=== PATIENT | male | born 1990 | race Caucasian/White ===

== ENCOUNTER 2020-12-17 09:09 | Emergency (ER) | payer OTHER ==
[2020-12-17 09:18] VITALS: BP 138/89; PULSE 111; RESP 16; TEMP 97.9
--- NOTE | 2020-12-17 09:44 | ED ---
Back Pain HPI - General Chief Complaint: Back Pain/Injury Stated Complaint: Back injury Time Seen by Provider: 12/17/20 09:20 Source: patient Limitations: no limitations - History of Present Illness Initial Comments: Patient is a 30-year-old male presenting to the emergency Department with complaints of left mid back pain that's been ongoing for about 2 weeks. Patient denies any falls or trauma to his back. He states he does have a history of intermittent back pain throughout the past few years. No prior surgeries. No fever or chills. No numbness and tingling into his extremities. Patient also states that he has a "pimple" on his left groin area that he is concerned could be turning into an infection. He does have history of MRSA and does not want this to get worse. He states it did open and drain yesterday. He has no other complaints at this time. Upon arrival to the ER his vitals are stable. - Related Data Previous Rx's Medication Instructions Recorded Sulfamethox-Tmp 800-160Mg [Bactrim 1 each PO Q12HR 5 Days #10 tab 12/17/20 Ds] methocarbamoL [Robaxin] 500 mg PO TID PRN #10 tab 12/17/20 Allergies Allergy/AdvReac Type Severity Reaction Status Date / Time No Known Allergies Allergy Verified 12/17/20 09:18 Review of Systems ROS Statement: Those systems with pertinent positive or pertinent negative responses have been documented in the HPI. ROS Other: All systems not noted in ROS Statement are negative. Past Medical History Additional Past Medical History / Comment(s): chronic back pain, hepatitis C History of Any Multi-Drug Resistant Organisms: MRSA Date of last positivie culture/infection: 2020 MDRO Source:: skin Past Surgical History: No Surgical Hx Reported Past Psychological History: ADD/ADHD, Anxiety, Depression, PTSD Smoking Status: Current every day smoker Past Alcohol Use History: None Reported Past Drug Use History: None Reported General Exam - General Exam Comments Initial Comments: GENERAL: Patient is well-developed and well-nourished. Patient is nontoxic and in no acute distress. HEAD: Atraumatic, normocephalic. EYES: Pupils equal round and reactive to light, extraocular movements intact, sclera anicteric, conjunctiva are normal. Eyelids were unremarkable. ENT: TMs normal, nares patent, oropharynx clear without exudates. Moist mucous membranes. NECK: Normal range of motion, supple without lymphadenopathy or JVD. LUNGS: Unlabored respirations. Breath sounds clear to auscultation bilaterally and equal. No wheezes rales or rhonchi. HEART: Regular rate and rhythm without murmurs, rubs or gallops. ABDOMEN: Soft, nontender, normoactive bowel sounds. No guarding, no rebound. No masses appreciated. : Deferred MUSCULOSKELETAL: Normal extremities with adequate strength and normal range of motion, no pitting or edema. No clubbing or cyanosis. Patient has no midline tenderness, he does have a muscle spasm of the left thoracic area. Full trunk range of motion. NEUROLOGICAL: Patient is alert and oriented x 3. Motor and sensory are also intact. Cranial nerves II through XII grossly intact. Symmetrical smile. Normal speech, normal gait. PSYCH: Normal mood, normal affect. SKIN: Warm, Dry, normal turgor,. Patient has what appears to be an ingrown hair in the left groin area, no abscess, no surrounding inflammatory changes. Limitations: no limitations Course Vital Signs 12/17/20 09:14 Temperature 97.9 F Pulse Rate 111 H Respiratory 16 Rate Blood Pressure 138/89 O2 Sat by Pulse 97 Oximetry Medical Decision Making - Medical Decision Making Patient is a 30-year-old male here for left sided mid back pain 2 weeks as well as concern for a possible infection on his left groin. Patient's back pain exam is consistent with a muscle spasm, no other acute findings. Patient does have a small pimple in the left groin, he is very concerned that this is going to turn into infection as he's had this before. Patient will be given a prescription for muscle relaxer, recommend ibuprofen for the discomfort in his back. I will give patient prescription for Bactrim, recommended waiting to see if this improves on its own since just opened up yesterday. Patient is in agreement with this plan of care. He is stable for discharge. Return benny eters were discussed with the patient he verbalizes understanding. He can follow-up with his regular doctor. Case discussed with Dr. Allen. Disposition Clinical Impression: Spasm of thoracic back muscle, Skin pimple Disposition: HOME SELF-CARE Condition: Stable Instructions (If sedation given, give patient instructions): Muscle Spasm (ED) Additional Instructions: Please return to the Emergency Department if symptoms worsen or any other concer ns. Recommend ibuprofen for back pain discomfort. He may also try muscle relaxer at nighttime. Recommend taking an antibiotic for possible skin infection if symptoms increase. Please follow-up with your regular doctor. Prescriptions: Sulfamethox-Tmp 800-160Mg [Bactrim Ds] 1 each PO Q12HR 5 Days #10 tab methocarbamoL [Robaxin] 500 mg PO TID PRN #10 tab PRN Reason: muscle spasms Is patient prescribed a controlled substance at d/c from ED?: No Referrals: None,Stated [Primary Care Provider] - 1-2 days
== END 2020-12-17 10:02 | disposition home or self-care (01) ==
LOC: EC 09:09
DX: M62.830 Muscle spasm of back (principal); R23.8 Other skin changes; F17.200 Nicotine dependence, unspecified, uncomplicated; Z86.14 Personal history of Methicillin resistant Staphylococcus aureus infection
CPT/HCPCS: 99283

== ENCOUNTER 2020-12-25 19:53 | Emergency (ER) | payer OTHER ==
[2020-12-25 20:09] VITALS: BP 132/71; PULSE 97; RESP 18; TEMP 97.9
[2020-12-25] MEDS ORDERED: KETOROLAC 15 MG/ML 1 ML VIAL IM STA (20:21)
--- NOTE | 2020-12-25 20:22 | ED ---
Upper Extremity HPI - General Chief Complaint: Extremity Injury, Upper Stated Complaint: 15 Ft fall Time Seen by Provider: 12/25/20 20:12 Source: patient, RN notes reviewed Mode of arrival: ambulatory Limitations: no limitations - History of Present Illness Initial Comments: Patient is a 30-year-old male that presents to emergency complaining of right u pper extremity, right collarbone, right shoulder blade pain. He noted he was standing on a take/scaffold at work because about 12 feet high when he fell off landing on his right side. He denied hitting his head or losing consciousness. He said the pain is about a 8 out of 10 currently this is unrelieved. He denied wanting any narcotics. He was in no apparent distress or discomfort while sitti ng in the room during exam and interview. He denied any alcohol consumption, chest pain, shortness of breath, headache nausea vomiting diarrhea constipation fever fatigue chills weakness numbness tingling loss of sensation. - Related Data Previous Rx's Medication Instructions Recorded Sulfamethox-Tmp 800-160Mg [Bactrim 1 each PO Q12HR 5 Days #10 tab 12/17/20 Ds] methocarbamoL [Robaxin] 500 mg PO TID PRN #10 tab 12/17/20 Allergies Allergy/AdvReac Type Severity Reaction Status Date / Time No Known Allergies Allergy Verified 12/17/20 09:18 Review of Systems ROS Statement: Those systems with pertinent positive or pertinent negative responses have been documented in the HPI. ROS Other: All systems not noted in ROS Statement are negative. Past Medical History Additional Past Medical History / Comment(s): chronic back pain, hepatitis C History of Any Multi-Drug Resistant Organisms: MRSA Date of last positivie culture/infection: 2020 MDRO Source:: skin Past Surgical History: No Surgical Hx Reported Past Psychological History: ADD/ADHD, Anxiety, Depression, PTSD Smoking Status: Current every day smoker Past Alcohol Use History: None Reported Past Drug Use History: None Reported General Exam Limitations: no limitations General appearance: alert, in no apparent distress Head exam: Present: atraumatic, normocephalic, normal inspection Eye exam: Present: normal appearance, PERRL, EOMI. Absent: scleral icterus, conjunctival injection, periorbital swelling Neck exam: Present: normal inspection. Absent: tenderness, meningismus, lymphadenopathy Respiratory exam: Present: normal lung sounds bilaterally. Absent: respiratory distress, wheezes, rales, rhonchi, stridor Cardiovascular Exam: Present: regular rate, normal rhythm, normal heart sounds. Absent: systolic murmur, diastolic murmur, rubs, gallop, clicks GI/Abdominal exam: Present: soft, normal bowel sounds. Absent: distended, tenderness, guarding, rebound, rigid Extremities exam: Present: normal inspection, normal capillary refill. Absent: full ROM (Decreased range of motion of right arm due to pain.), tenderness, pedal edema, joint swelling, calf tenderness Neurological exam: Present: alert, oriented X3, CN II-XII intact Psychiatric exam: Present: normal affect, normal mood Skin exam: Present: warm, dry, intact, normal color. Absent: rash Course Vital Signs 12/25/20 20:04 Temperature 97.9 F Pulse Rate 97 Respiratory 18 Rate Blood Pressure 132/71 O2 Sat by Pulse 95 Oximetry Medical Decision Making - Medical Decision Making 1-year-old male status post fall from 12 feet and landing on his right side. Complete shoulder x-ray and complete clavicle x-ray ordered. 15 mg of Toradol ordered, patient did not want narcotics. Case discussed with Dr. De Dios, was decided the patient could discharge home with follow up primary care. - Radiology Data Radiology results: report reviewed, image reviewed Clavicle: There is no acute fracture or dislocation the visualized joint spaces are preserved. Shoulder: There is no acute fracture dislocation of visualized joint spaces are preserved. Disposition Clinical Impression: Fall, Shoulder pain, right, Clavicle pain Disposition: HOME SELF-CARE Condition: Stable Instructions (If sedation given, give patient instructions): Fall Prevention (ED), Shoulder Pain (ED) Additional Instructions: Please return to the Emergency Department if symptoms worsen or any other concerns. Follow-up with primary care 1-2 days. Take [id number] pain medication as needed for management. Is patient prescribed a controlled substance at d/c from ED?: No Referrals: None,Stated [Primary Care Provider] - 1-2 days Time of Disposition: 21:13
[2020-12-25] MEDS: KETOROLAC 15 MG/ML 1 ML VIAL IVP STA ×2 (20:23→20:42)
--- NOTE | 2020-12-25 20:54 | XR ---
RESULT: HISTORY: Fall from height TECHNIQUE: 3 views of the right shoulder. 2 views of the right clavicle. COMPARISON: None. FINDINGS: There is no acute fracture or dislocation. The visualized joint spaces are preserved. IMPRESSION: No acute osseous abnormality of the right shoulder or clavicle.
== END 2020-12-25 21:34 | disposition home or self-care (01) ==
LOC: EC 19:53
DX: M25.511 Pain in right shoulder (principal); F17.200 Nicotine dependence, unspecified, uncomplicated; W17.89XA Other fall from one level to another, initial encounter; Y92.69 Other specified industrial and construction area as the place of occurrence of the external cause
CPT/HCPCS: 73000; 73030; 96374; 96372; 99283; J1885

== ENCOUNTER 2020-12-29 15:57 | Emergency (ER) | payer OTHER ==
[2020-12-29 16:17] VITALS: RESP 18; TEMP 97.9
--- NOTE | 2020-12-29 17:03 | ED ---
General Adult HPI - General Chief complaint: Extremity Injury, Upper Stated complaint: Fall, arm pain Time Seen by Provider: 12/29/20 16:00 Source: patient, RN notes reviewed, old records reviewed Mode of arrival: ambulatory Limitations: no limitations - History of Present Illness Initial comments: This is a 30-year-old male presents emergency Department complaining of having fallen 15 feet and injuring his right clavicle and shoulder area. Patient came to the emergency room at that time and had x-rays done but since going home he states the clavicular sternal joint area is still extremely tender and it limits him from lifting anything heavy and makes it impossible for him to complete his job. Patient denies any actual shoulder pain. Patient denies any chest pain patient with any difficulty breathing. Patient denies any head or neck injury. - Related Data Previous Rx's Medication Instructions Recorded Sulfamethox-Tmp 800-160Mg [Bactrim 1 each PO Q12HR 5 Days #10 tab 12/17/20 Ds] methocarbamoL [Robaxin] 500 mg PO TID PRN #10 tab 12/17/20 Allergies Allergy/AdvReac Type Severity Reaction Status Date / Time No Known Allergies Allergy Verified 12/29/20 16:18 Review of Systems ROS Statement: Those systems with pertinent positive or pertinent negative responses have been documented in the HPI. ROS Other: All systems not noted in ROS Statement are negative. Past Medical History Additional Past Medical History / Comment(s): chronic back pain, hepatitis C History of Any Multi-Drug Resistant Organisms: MRSA Date of last positivie culture/infection: 2020 MDRO Source:: skin Past Surgical History: No Surgical Hx Reported Past Psychological History: ADD/ADHD, Anxiety, Depression, PTSD Smoking Status: Current every day smoker Past Alcohol Use History: None Reported Past Drug Use History: None Reported General Exam - General Exam Comments Initial Comments: GENERAL Patient is well-developed and well-nourished. Patient is in mild distress. EYES Patient's pupils are equal and round. Extraocular motion is intact SKIN Unremarkable NEURO The patient is alert and oriented 3 PYSCH Patient has normal interpersonal interactions. MUSCULOSKELETAL Patient has no shoulder tenderness no skin tenderness no chest tenderness. Patient's tenderness is at the right sternoclavicular joint area is slightly protruding when compared to the left patient has pain when abducting the arm forward Limitations: no limitations Course Vital Signs 12/29/20 12/29/20 16:15 17:45 Temperature 97.9 F Pulse Rate 78 75 Respiratory 18 18 Rate Blood Pressure 172/105 146/95 O2 Sat by Pulse 98 98 Oximetry Medical Decision Making - Medical Decision Making X-ray of the clavicle and sternal joint showed a nondisplaced fracture of the proximal clavicle on the right. Disposition Clinical Impression: Clavicle fracture Disposition: HOME SELF-CARE Instructions (If sedation given, give patient instructions): Clavicle Fracture (ED) Is patient prescribed a controlled substance at d/c from ED?: No Referrals: Won Danielson MD [STAFF PHYSICIAN] - 1-2 days Time of Disposition: 18:24
[2020-12-29 17:46] VITALS: BP 146/95; PULSE 75
[2020-12-29] MEDS ORDERED: KETOROLAC 15 MG/ML 1 ML VIAL IM STA (17:53)
--- NOTE | 2020-12-29 18:17 | XR ---
RESULT: HISTORY: Trauma with pain. TECHNIQUE: 3 views of the sternoclavicular junction were obtained. COMPARISON: None. FINDINGS: There is nondisplaced right proximal clavicle fracture near the sternum. No evidence of dislocation. IMPRESSION: Nondisplaced right proximal clavicle fracture.
== END 2020-12-29 18:39 | disposition home or self-care (01) ==
LOC: EC 15:57
DX: S42.001A Fracture of unspecified part of right clavicle, initial encounter for closed fracture (principal); F17.200 Nicotine dependence, unspecified, uncomplicated; Z86.14 Personal history of Methicillin resistant Staphylococcus aureus infection; W17.89XA Other fall from one level to another, initial encounter
CPT/HCPCS: 71130; 99284; 96372; L3670; J1885

== ENCOUNTER 2021-02-22 16:55 | Inpatient (IN) | payer OTHER ==
[2021-02-22] MEDS ORDERED: SODIUM CHLORIDE 0.9% 1,000 ML IV ONE (17:05)
[2021-02-22 17:32] LABS: Basophils % (A) 1 %; Eosinophils # (A) 0.2 k/uL (0-0.7); Eosinophils % (A) 2 %; HCT 43.3 % (39.0-53.0); HGB 15.1 gm/dL (13.0-17.5); Lymphocytes # (A) 0.7 k/uL (1.0-4.8); Lymphocytes % (A) 8 %; MCH 32.5 pg (25.0-35.0); MCHC 34.9 g/dL (31.0-37.0); MCV 93.2 fL (80.0-100.0); Mean Platelet Volume 6.9; Monocytes # (A) 0.4 k/uL (0-1.0); Monocytes % (A) 4 %; Neutrophils # (A) 7.2 k/uL (1.3-7.7); Neutrophils % (A) 85 %; Platelet Count 175 k/uL (150-450); RBC 4.65 m/uL (4.30-5.90); WBC 8.6 k/uL (3.8-10.6)
[2021-02-22 17:40] LABS: ABG Base Excess 2.8 mmol/L; ABG HCO3 29 mmol/L (21-25); ABG Oxygen Saturation 88.4 % (94-97); ABG PCO2 59 mmHg (35-45); ABG TCO2 31 mmol/L (19-24); Allen Test Performed? Yes
[2021-02-22 17:43] LABS: ABG PO2 54 mmHg (83-108)
[2021-02-22] MEDS ORDERED: NALOXONE 0.4 MG/ML 1 ML VIAL IVP STA (17:43)
[2021-02-22 17:50] LABS: ALT 27 U/L (4-49); AST 37 U/L (17-59); African American GFR (CKD) >90 (>60 ml/min/1.73 sqM); Albumin 4.5 g/dL (3.5-5.0); Alkaline Phosphatase 63 U/L (38-126); Anion Gap 6 mmol/L; Blood Urea Nitrogen 16 mg/dL (9-20); Calcium 8.9 mg/dL (8.4-10.2); Carbon Dioxide 29 mmol/L (22-30); Chloride 102 mmol/L (98-107); Glucose 111 mg/dL (74-99); Non-African American GFR(CKD) >90 (>60 ml/min/1.73 sqM); Potassium 4.5 mmol/L (3.5-5.1); Sodium 137 mmol/L (137-145); Total Bilirubin 0.6 mg/dL (0.2-1.3); Total Protein 7.6 g/dL (6.3-8.2)
--- NOTE | 2021-02-22 18:13 | ED ---
General Adult HPI - General Chief complaint: Overdose Stated complaint: Overdose Time Seen by Provider: 02/22/21 17:10 Source: patient, RN notes reviewed, old records reviewed Mode of arrival: EMS Limitations: no limitations - History of Present Illness Initial comments: This is a 31-year-old male who presents emergency Department after he had an unresponsive episode. Patient was going to [place] for heroin rehabilitation and he states he shot up just before he wanted when he got there he went unresponsive. He was given Narcan nasally there and then 2 of IM Narcan on the way to the hospital he is arousable but still extremely drowsy and he is oxygenating in the high 70s or the low 80s. Patient denies any other drug use at this time patient denies no cough per patient denies any symptoms aside from feeling tired - Related Data Home Medications Medication Instructions Recorded Confirmed No Known Home Medications 02/22/21 02/22/21 Allergies Allergy/AdvReac Type Severity Reaction Status Date / Time No Known Allergies Allergy Verified 02/22/21 19:29 Review of Systems ROS Statement: Those systems with pertinent positive or pertinent negative responses have been documented in the HPI. ROS Other: All systems not noted in ROS Statement are negative. Past Medical History Additional Past Medical History / Comment(s): chronic back pain, hepatitis C History of Any Multi-Drug Resistant Organisms: MRSA Date of last positivie culture/infection: 2020 MDRO Source:: skin Past Surgical History: No Surgical Hx Reported Past Psychological History: ADD/ADHD, Anxiety, Depression, PTSD Smoking Status: Current every day smoker Past Alcohol Use History: None Reported Past Drug Use History: Heroin General Exam - General Exam Comments Initial Comments: GENERAL: Patient is well-developed and well-nourished. Patient is nontoxic and well- hydrated and is in mild distress. ENT: Neck is soft and supple. No significant lymphadenopathy is noted. Oropharynx is clear. Moist mucous membranes. Neck has full range of motion without eliciting any pain. There is no thyroid enlargement and no masses were felt. EYES: The sclera were anicteric and conjunctiva were pink and moist. Extraocular mov ements were intact and pupils were equal round and reactive to light. Eyelids were unremarkable. PULMONARY: Unlabored respirations. Good breath sounds bilaterally. No audible rales rhonchi or wheezing was noted. CARDIOVASCULAR: There is a regular rate and rhythm without any murmurs gallops or rubs. ABDOMEN: Soft and nontender with normal bowel sounds. SKIN: Skin is clear with no lesions or rashes and otherwise unremarkable. NEUROLOGIC: Patient is alert and oriented at least 1 however is difficult to assess further because patient keeps falling asleep. Cranial nerves II through XII are grossly intact. Motor and sensory are also intact. Normal speech, volume and content. Symmetrical smile. MUSCULOSKELETAL: Normal extremities with adequate strength and full range of motion. LYMPHATICS: No significant lymphadenopathy is noted PSYCHIATRIC: Cannot assess at this time Limitations: no limitations Course Vital Signs 02/22/21 02/22/21 02/22/21 17:11 18:15 18:16 Temperature 98.7 F Pulse Rate 95 75 Respiratory 14 20 14 Rate Blood Pressure 153/87 160/102 O2 Sat by Pulse 86 L 94 L Oximetry 02/22/21 19:00 Temperature Pulse Rate 89 Respiratory 20 Rate Blood Pressure 153/88 O2 Sat by Pulse 91 L Oximetry Medical Decision Making - Medical Decision Making EKG shows normal sinus rhythm at 94 bpm ME interval is on a 38 QRS is 94 QT interval 332 QTC is 4:15. Patient's EKG shows no ST segment elevation or depression. Patient's chest x-ray shows right lower lobe pneumonia consistent with aspiration. Patient had a Narcan because he was desaturating into the 70s after giving Narcan he was oxygenating in the low 90s 90-91%. I started patient on Rocephin. I [facility] with the [facility]ist agreed to accept the patient admitted the patient wrote admitting orders. I - Lab Data Result diagrams: 02/22/21 17:21 02/22/21 17:21 Lab Results 02/22/21 02/22/21 02/22/21 Range/Units 17:21 17:21 17:21 WBC 8.6 (3.8-10.6) k/uL RBC 4.65 (4.30-5.90) m/uL Hgb 15.1 (13.0-17.5) gm/dL Hct 43.3 (39.0-53.0) % MCV 93.2 (80.0-100.0) fL MCH 32.5 (25.0-35.0) pg MCHC 34.9 (31.0-37.0) g/dL RDW 12.0 (11.5-15.5) % Plt Count 175 (150-450) k/uL MPV 6.9 Neutrophils % 85 % Lymphocytes % 8 % Monocytes % 4 % Eosinophils % 2 % Basophils % 1 % Neutrophils # 7.2 (1.3-7.7) k/uL Lymphocytes # 0.7 L (1.0-4.8) k/uL Monocytes # 0.4 (0-1.0) k/uL Eosinophils # 0.2 (0-0.7) k/uL Basophils # 0.0 (0-0.2) k/uL D-Dimer 1.36 H (<0.60) mg/L FEU Sample Site ABG pH (7.35-7.45) ABG pCO2 (35-45) mmHg ABG pO2 (83-108) mmHg ABG HCO3 (21-25) mmol/L ABG Total CO2 (19-24) mmol/L ABG O2 Saturation (94-97) % ABG Base Excess mmol/L Deniz Test FiO2 % Sodium 137 (137-145) mmol/L Potassium 4.5 (3.5-5.1) mmol/L Chloride 102 (98-107) mmol/L Carbon Dioxide 29 (22-30) mmol/L Anion Gap 6 mmol/L BUN 16 (9-20) mg/dL Creatinine 1.02 (0.66-1.25) mg/dL Est GFR (CKD-EPI)AfAm >90 (>60 ml/min/1.73 sqM) Est GFR (CKD-EPI)NonAf >90 (>60 ml/min/1.73 sqM) Glucose 111 H (74-99) mg/dL Calcium 8.9 (8.4-10.2) mg/dL Total Bilirubin 0.6 (0.2-1.3) mg/dL AST 37 (17-59) U/L ALT 27 (4-49) U/L Alkaline Phosphatase 63 (38-126) U/L Total Protein 7.6 (6.3-8.2) g/dL Albumin 4.5 (3.5-5.0) g/dL 02/22/21 Range/Units 17:28 WBC (3.8-10.6) k/uL RBC (4.30-5.90) m/uL Hgb (13.0-17.5) gm/dL Hct (39.0-53.0) % MCV (80.0-100.0) fL MCH (25.0-35.0) pg MCHC (31.0-37.0) g/dL RDW (11.5-15.5) % Plt Count (150-450) k/uL MPV Neutrophils % % Lymphocytes % % Monocytes % % Eosinophils % % Basophils % % Neutrophils # (1.3-7.7) k/uL Lymphocytes # (1.0-4.8) k/uL Monocytes # (0-1.0) k/uL Eosinophils # (0-0.7) k/uL Basophils # (0-0.2) k/uL D-Dimer (<0.60) mg/L FEU Sample Site LRAD ABG pH 7.30 L (7.35-7.45) ABG pCO2 59 H (35-45) mmHg ABG pO2 54 L* (83-108) mmHg ABG HCO3 29 H (21-25) mmol/L ABG Total CO2 31 H (19-24) mmol/L ABG O2 Saturation 88.4 L (94-97) % ABG Base Excess 2.8 mmol/L Deniz Test Yes FiO2 44 % Sodium (137-145) mmol/L Potassium (3.5-5.1) mmol/L Chloride (98-107) mmol/L Carbon Dioxide (22-30) mmol/L Anion Gap mmol/L BUN (9-20) mg/dL Creatinine (0.66-1.25) mg/dL Est GFR (CKD-EPI)AfAm (>60 ml/min/1.73 sqM) Est GFR (CKD-EPI)NonAf (>60 ml/min/1.73 sqM) Glucose (74-99) mg/dL Calcium (8.4-10.2) mg/dL Total Bilirubin (0.2-1.3) mg/dL AST (17-59) U/L ALT (4-49) U/L Alkaline Phosphatase (38-126) U/L Total Protein (6.3-8.2) g/dL Albumin (3.5-5.0) g/dL Critical Care Time Critical Care Time: Yes Total Critical Care Time: 35 Disposition Clinical Impression: Aspiration pneumonia, Heroin overdose Disposition: ADMITTED IP TO THIS HOSP Referrals: None,Stated [Primary Care Provider] - 1-2 days Time of Disposition: 19:52
[2021-02-22] MEDS ORDERED: ONDANSETRON 4 MG/2 ML VIAL IVP STA (18:24)
--- NOTE | 2021-02-22 19:32 | XR ---
EXAMINATION TYPE: XR chest 1V portable DATE OF EXAM: 02/22/2021 CLINICAL HISTORY: Short of breath. TECHNIQUE: Portable frontal view of the chest. COMPARISON: None FINDINGS: The cardiomediastinal silhouette is within normal limits for size. Pulmonary vasculature i s normal. There is focal airspace opacity over the right infrahilar lung with no volume loss. No ple ural effusion. No pneumothorax seen. No acute displaced osseous fracture. IMPRESSION: Focal right infrahilar airspace opacity may represent aspiration pneumonia.
[2021-02-22] MEDS ORDERED: cefTRIAXone IN SWFI 1,000 MG/10 ML SYRINGE IVP STA ×2 (19:43→20:00)
[2021-02-22] MEDS ORDERED: PNEUMONIA PROTOCOL UTILIZED 1 EACH MISC PO PRN (19:54)
[2021-02-22] MEDS ORDERED: AZITHROMYCIN 500 MG in SODIUM CHLORIDE 0.9% 250 ML IVPB STA (19:54)
--- NOTE | 2021-02-22 21:08 | CT ---
EXAMINATION TYPE: CT chest angio for PE DATE OF EXAM: 02/22/2021 COMPARISON: None HISTORY: Shortness of breath CONTRAST: CT chest with contrast and 3D reconstruction with MIP imaging is performed , patient injected with 10 0 mL of Isovue 300. Contrast-enhanced CT of the chest was performed through the course of the pulmonary arteries with kassy g and mediastinal window settings submitted. 3D reconstruction with MIP imaging was also performed. PULMONARY ARTERIES: The pulmonary arteries and their major tributaries are patent. I do not see salome dence for sizable filling defect to suggest pulmonary embolic process. LUNGS: Moderate airspace consolidation throughout both lung prince compatible with Covid 19 pneumonia . No evidence for atelectasis. No pulmonary nodule or mass is detected. No pleural effusion. MEDIASTINUM: Thoracic aorta is of normal caliber,however, evaluation is limited given timing of the contrast bolus. If there is concern for thoracic aortic pathology consider CASI. Correlate clinicall y . The heart is not enlarged. No evidence for mediastinal mass. No mediastinal lymph nodes greater than 1cm. HILAR STRUCTURES: No evidence for mass. No hilar lymph nodes greater than 1 cm. UPPER ABDOMEN: No significant abnormality is seen. IMPRESSION: 1. No evidence for Pulmonary embolism at this time. 2.Moderate airspace consolidation throughout both lung prince compatible with Covid 19 pneumonia.
[2021-02-22 23:44] LABS: Amphetamine Screen,Urine Detected (NotDetected); Barbiturate Screen,Urine Not Detected (NotDetected); Benzodiazepines Screen,Urine Not Detected (NotDetected); Cocaine Screen,Urine Detected (NotDetected); Methadone Screen, Urine Not Detected (NotDetected); Opiate Screen,Urine Detected (NotDetected); Oxycodone Screen, Urine Not Detected (NotDetected); Phencyclidine Screen,Urine Not Detected (NotDetected); Tricyclic Antidepressant,Urine Not Detected (NotDetected); Urn Cannabinoid Scrn Not Detected (NotDetected)
[2021-02-23] MEDS: metroNIDAZOLE-NS PMX 500 MG in SALINE 1 100ML.BAG IVPB SCH ×3 (00:38→16:38)
[2021-02-23] MEDS ORDERED: ACETAMINOPHEN TAB 325 MG TAB PO PRN (00:58)
--- NOTE | 2021-02-23 09:26 | XR ---
EXAMINATION TYPE: XR chest 1V DATE OF EXAM: 02/23/2021 COMPARISON: Chest x-ray and chest CT 02/22/2021 HISTORY: Pneumonia TECHNIQUE: frontal view of the chest is obtained on 2 images. FINDINGS: There are differences in rotation. Patchy bilateral lung density is noted. Prominence of p ulmonary artery could be indicative of pulmonary artery hypertension. No evident pneumothorax or pleu ral effusion. Cardiac mediastinal silhouette is thought to be stable accounting for differences in [place]. IMPRESSION: Correlate for pneumonia.
[2021-02-23] MEDS ORDERED: VANCOMYCIN IV PER PHARMACY 1 EACH MISC MISCELLANE PRN (16:50)
[2021-02-23] MEDS: NICOTINE POLACRILEX 2 MG GUM BUCCAL PRN (17:11)
[2021-02-23] MEDS: VANCOMYCIN 1,500 MG in SODIUM CHLORIDE 0.9% 250 ML IVPB SCH (17:34)
[2021-02-23] MEDS ORDERED: TEMAZEPAM 15 MG CAP PO PRN (20:35)
[2021-02-23] MEDS ORDERED: ENOXAPARIN 40 MG/0.4 ML SYRINGE SQ SCH (21:00)
[2021-02-23] MEDS: cloNIDine HCL 0.1 MG TAB PO SCH (21:18)
[2021-02-23 21:29] LABS: C Reactive Protein 7.8 mg/dL (<1.0)
--- NOTE | 2021-02-23 21:31 | P.HPIM ---
History of Present Illness H&P Date: 02/23/21 Chief Complaint: Altered mental status. Patient is a 31-year-old male with a known history of chronic back pain, hepatitis C, ADD/ADHD, anxiety/depression and heroin IVDU presents to ER due to unresponsive state. Patient was going to [place] for heroine rehabilitation. Patient admits injecting heroine before going to [place] and he became unresponsive when he went there. Patient was given Narcan intranasally and then [address] to the hospital. Patient is awake alert oriented x3 now. Still drowsy. Pulse ox was 76% when he came to ER on room air. Patient was afebrile initially but T-max was 101.5 last night. Denied any complaints of chest pain. Denied any fever or chills at home. No nausea vomiting abdominal pain or diarrhea. Patient states that he is feeling tired. No leg swelling. No increased back pain. Chest x-ray showed focal right infrahilar airspace opacity may represent aspiration pneumonia. CT angiogram of the chest showed no evidence of pulmonary embolism. Moderate airspace consolidation throughout both lung prince compatible with Covid pneumonia Repeat chest x-ray showed correlate for pneumonia. EKG showed normal sinus rhythm Laboratory data showed WBC 8.6 hemoglobin 15.1 and platelets 175 lymphocytes 0.7 D-dimer 1.36 ABG showed pH 7.3, PCO2 59 and PO2 44 Sodium 137 potassium 4.5 chloride 102 BUN 16 creatinine 1.02 and lactic acid 0.9 Liver enzymes are not elevated UDS is positive for opiates, amphetamines, methamphetamines which showed moderate airspace consolidation throughout both lung prince and cocaine. COVID-19 PCR not detected. Review of Systems Constitutional: Patient denies any fever or chills . generalized weakness and tired. Abdomen: Patient denied nausea vomiting and diarrhea and abdominal pain. Cardiovascular: Patient denies any chest pain or short of breath no palpitations. Respiratory: patient denied any cough or sputum production. No shortness of breath Neurologic: Patient denied any numbness or tingling headache. Musculoskeletal: Patient denies any complaints of joint swelling or deformity. Back pain Skin: Negative Psychiatric: Negative Endocrine: No heat or cold intolerance. No recent weight gain. Genitourinary: No dysuria or hematuria. All other 14 point ROS negative except the above Past Medical History Additional Past Medical History / Comment(s): chronic back pain, hepatitis C History of Any Multi-Drug Resistant Organisms: MRSA Date of last positivie culture/infection: 2020 MDRO Source:: skin Past Surgical History: No Surgical Hx Reported Past Psychological History: ADD/ADHD, Anxiety, Depression, PTSD Smoking Status: Current every day smoker Past Alcohol Use History: None Reported Past Drug Use History: Heroin - Past Family History Mother Family Medical History: No Reported History Father Family Medical History: Diabetes Mellitus Medications and Allergies Home Medications Medication Instructions Recorded Confirmed Type No Known Home Medications 02/22/21 02/22/21 History Allergies Allergy/AdvReac Type Severity Reaction Status Date / Time No Known Allergies Allergy Verified 02/22/21 19:29 Physical Exam Vitals: Vital Signs Temp Pulse Resp BP Pulse Ox 02/23/21 06:00 97.6 F 71 18 114/72 97 02/23/21 05:00 82 20 118/69 95 02/23/21 04:00 86 20 109/64 93 L 02/23/21 03:00 87 20 136/76 93 L 02/23/21 02:05 100.4 F H 02/23/21 00:39 101.5 F H 92 20 134/78 94 L 02/22/21 23:00 98.1 F 89 22 142/83 95 02/22/21 22:00 94 24 132/64 92 L 02/22/21 21:00 98.2 F 91 20 130/96 93 L 02/22/21 20:15 93 16 144/86 94 L 02/22/21 19:00 89 20 153/88 91 L 02/22/21 18:16 14 02/22/21 18:15 75 20 160/102 94 L 02/22/21 17:11 98.7 F 95 14 153/87 86 L 02/22/21 17:00 76 L Intake and Output 02/22/21 02/23/21 02/23/21 22:59 06:59 14:59 Other: Weight 99.79 kg PHYSICAL EXAMINATION: Patient is lying in the bed comfortably, no acute distress, awake alert and oriented.Somewhat drowsy. HEENT: Normocephalic. Neck is supple. Pupils reactive. Nostrils clear. Oral cavity is moist. Ears reveal no drainage. Neck reveals no JVD, carotid bruits, or thyromegaly. CHEST EXAMINATION: Trachea is central. Symmetrical expansion. Right basilar coarse sounds. No wheezing. Nonlabored breathing. CARDIAC: Normal S1, S2 with no gallops. No murmurs ABDOMEN: Soft. Bowel sounds normal. No organomegaly. No abdominal bruits. Extremities: reveal no edema. No clubbing or cyanosis Neurologically awake, alert, oriented x3 with well-coordinated movements. No focal deficits noted Skin: No rash or skin lesions. Psychiatric: Coperative. Nonsuicidal Musculoskeletal: No joint swelling or deformity. Normal range of motion. Results CBC & Chem 7: 02/22/21 17:21 02/22/21 17:21 Labs: Abnormal Lab Results - Last 24 Hours (Table) 02/22/21 02/22/21 02/22/21 Range/Units 17: 17: 17: Lymphocytes # 0.7 L (1.0-4.8) k/uL D-Dimer 1.36 H (<0.60) mg/L FEU ABG pH (7.35-7.45) ABG pCO2 (35-45) mmHg ABG pO2 (83-108) mmHg ABG HCO3 (21-25) mmol/L ABG Total CO2 (19-24) mmol/L ABG O2 Saturation (94-97) % Glucose 111 H (74-99) mg/dL Urine Opiates Screen (NotDetected) Ur Amphetamines Screen (NotDetected) U Methamphetamines Scrn (NotDetected) Urine Cocaine Screen (NotDetected) 02/22/21 02/22/21 Range/Units 17:28 23:25 Lymphocytes # (1.0-4.8) k/uL D-Dimer (<0.60) mg/L FEU ABG pH 7.30 L (7.35-7.45) ABG pCO2 59 H (35-45) mmHg ABG pO2 54 L* (83-108) mmHg ABG HCO3 29 H (21-25) mmol/L ABG Total CO2 31 H (19-24) mmol/L ABG O2 Saturation 88.4 L (94-97) % Glucose (74-99) mg/dL Urine Opiates Screen Detected H (NotDetected) Ur Amphetamines Screen Detected H (NotDetected) U Methamphetamines Scrn Detected H (NotDetected) Urine Cocaine Screen Detected H (NotDetected) Thrombosis Risk Factor Assmnt - DVT/VTE Prophylaxis DVT/VTE Prophylaxis: Pharmacologic Prophylaxis ordered Assessment and Plan Assessment: Acute hypoxic respiratory failure due to pneumonia. Requiring 6 L oxygen via nasal cannula. Aspiration pneumonia with the right infrahilar opacity/consolidation. Suspected COVID-19 pneumonia. Heroin IVDU Daily alcohol use Chronic back pain Hepatitis C ADD/ADHD Anxiety/depression PTH DVT prophylaxis Lovenox Plan: Patient will be continued on antibiotics in the form of ceftriaxone and Flagyl for possible aspiration pneumonia. CT angiogram was done due to elevated D- dimer level showed moderate airspace consolidation throughout both lung prince suggestive of COVID-19 pneumonia. LDH, CRP and ferritin and procalcitonin was ordered.. Pulmonary was consulted and follow-up closely. Further recommendations based on clinical course. Prognosis guarded. Time with Patient: Greater than 30
--- NOTE | 2021-02-23 23:05 | HP ---
HISTORY AND PHYSICAL DATE OF SERVICE: 02/23/2021 CHIEF COMPLAINT: Overdose. HISTORY OF PRESENT ILLNESS: This 31-year-old gentleman with a past medical history of multiple medical problems, including history of chronic back pain, hepatitis C, history of MRSA, history ADD, ADHD, anxiety, depression, PTSD, not being followed by any primary physician in the outpatient setting, apparently has multiple polysubstance abuse, drug history. The patient was abusing cocaine, heroin, methamphetamine and opiates previously. The patient was going to check into [facility], but just before that in the parking lot he became unresponsive. The patient apparently took a shot of heroin. The patient was given Narcan and subsequently 2 grams of IV Narcan. The patient was drowsy. The patient's oxygenation was found to be 70%. Chest x-ray showed bilateral extensive lesions. CT of the chest also showed significant bilateral infiltrates, possibly aspiration pneumonia. COVID-19 test was negative. Patient was admitted for evaluation and treatment. The patient was started on broad-spectrum IV antibiotics. Pulmonary consultation is in progress. There is no history of any fever, rigor or chills. No history of headache, loss of consciousness, seizures at this time. PAST MEDICAL HISTORY: History of chronic back pain, hepatitis C, MRSA, polysubstance abuse. MEDICATIONS: None. ALLERGIES: NONE. FAMILY HISTORY: No history of heart disease or strokes in the family. SOCIAL HISTORY: History of cocaine, heroin. REVIEW OF SYSTEMS: ENT: No diminished hearing. No diminished vision. CARDIOVASCULAR SYSTEM: No angina, palpitations. RESPIRATORY SYSTEM: As mentioned earlier. GI: No nausea, vomiting. : No dysuria or retention. NERVOUS SYSTEM: No numbness, weakness. ALLERGY/IMMUNOLOGY: No asthma, hayfever. MUSCULOSKELETAL: As mentioned earlier. HEMATOLOGY/ONCOLOGY: No history of anemia. ENDOCRINE: No history of diabetes, hypothyroidism. CONSTITUTIONAL: As mentioned earlier. DERMATOLOGY: Negative. RHEUMATOLOGY: Negative. PSYCHIATRY: As mentioned earlier. PHYSICAL EXAMINATION: Patient alert and oriented x3. Pulse 76, blood pressure 133/63, respirations 16, temperature 97.4, pulse ox 98% on 6 L. HEENT: Conjunctivae normal. Oral mucosa moist. NECK: No jugular venous distention. No carotid bruit. No lymph node enlargement. CARDIOVASCULAR SYSTEM: S1, S2 muffled. No S3. No S4. RESPIRATORY SYSTEM: Breath sounds diminished at the bases. Scattered rhonchi. No crackles. ABDOMEN: Soft, obese, non-tender. No mass palpable. LEGS: No edema. No swelling. NERVOUS SYSTEM: Higher functions as mentioned earlier. Moves all 4 limbs. No focal motor or sensory deficit. LYMPHATICS: No lymph node palpable in neck, axillae or groin. SKIN: No ulcer, rash, bleeding. JOINTS: No active deforming arthropathy. LABS: CBC within normal limits. ABGs noted. ASSESSMENT: 1. Acute bilateral pneumonia, possibly aspiration, with acute hypoxic respiratory failure. 2. Change in mental status with acute metabolic encephalopathy, status post heroin overdose. 3. Acute respiratory acidosis. 4. Lymphopenia. 5. Polysubstance abuse history. 6. History of chronic back pain. 7. History of hepatitis C. 8. History of methicillin-resistant Staphylococcus aeruginosa. 9. History of attention deficit disorder, attention deficit hyperactivity disorder, anxiety, depression, post-traumatic stress disorder. 10.History of nicotine dependence. RECOMMENDATIONS AND DISCUSSION: In this 31-year-old gentleman who presented with multiple complex medical issues, we will monitor the patient closely, continue the current medications, continue symptomatic treatment. Will initiate broad-spectrum IV antibiotics. I would also recommend pulmonary consultation. Other than that, I would also recommend COVID-19 PCR testing. Inflammatory markers of the COVID-19 also will be requested. Guarded prognosis because of multiple complex medical issues. Further recommendations to follow. Procalcitonin will be requested as well. Repeat labs will be ordered. I would recommend that the patient go back to [facility] after recovery from the extensive pneumonia the patient is having. Otherwise, we will follow the patient closely with you. The patient did not report any contact with COVID-19 patients at this time. MMODL / IJN: [id number] /
[2021-02-24] MEDS: VANCOMYCIN 1,500 MG in SODIUM CHLORIDE 0.9% 250 ML IVPB SCH ×2 (01:16→10:38)
[2021-02-24] MEDS: metroNIDAZOLE-NS PMX 500 MG in SALINE 1 100ML.BAG IVPB SCH ×2 (01:17→08:05)
[2021-02-24] MEDS ORDERED: PANTOPRAZOLE 40 MG TABLET PO SCH (07:30)
[2021-02-24 07:51] VITALS: BP 133/73; PULSE 82; TEMP 98.4
[2021-02-24] MEDS: cloNIDine HCL 0.1 MG TAB PO SCH (08:06)
[2021-02-24] MEDS: NICOTINE POLACRILEX 2 MG GUM BUCCAL PRN (09:14)
[2021-02-24 10:09] LABS: Basophils % (A) 1 %; Eosinophils # (A) 0.2 k/uL (0-0.7); Eosinophils % (A) 3 %; HCT 39.4 % (39.0-53.0); HGB 14.4 gm/dL (13.0-17.5); Lymphocytes # (A) 0.8 k/uL (1.0-4.8); Lymphocytes % (A) 14 %; MCH 33.5 pg (25.0-35.0); MCHC 36.6 g/dL (31.0-37.0); MCV 91.7 fL (80.0-100.0); Mean Platelet Volume 8.4; Monocytes # (A) 0.3 k/uL (0-1.0); Monocytes % (A) 6 %; Neutrophils # (A) 4.5 k/uL (1.3-7.7); Neutrophils % (A) 76 %; Platelet Count 120 k/uL (150-450); RDW 11.8 % (11.5-15.5); WBC 5.9 k/uL (3.8-10.6)
[2021-02-24 10:14] VITALS: RESP 18
[2021-02-24 10:21] LABS: African American GFR (CKD) >90 (>60 ml/min/1.73 sqM); Anion Gap 7 mmol/L; Blood Urea Nitrogen 9 mg/dL (9-20); Carbon Dioxide 23 mmol/L (22-30); Chloride 108 mmol/L (98-107); Glucose 100 mg/dL (74-99); Non-African American GFR(CKD) >90 (>60 ml/min/1.73 sqM); Sodium 138 mmol/L (137-145)
[2021-02-24 10:22] LABS: Potassium 4.5 mmol/L (3.5-5.1)
[2021-02-24 11:35] LABS: Ferritin 73.2 ng/mL (22.0-322.0)
[2021-02-24] MEDS ORDERED: AMOXIC-POT CLAV 875-125MG 1 EACH TAB PO SCH (12:30)
--- NOTE | 2021-02-24 15:57 | P.CNPUL ---
History of Present Illness Consult date: 02/24/21 Requesting physician: Cherelle Adhikari Reason for consult: pneumonia Chief complaint: Altered mental status History of present illness: This is a 31-year-old white male with history of hepatitis C ADHD, heroin IV drug abuser, presented to the ER due to unresponsiveness. Patient admits to injecting her 1 before going to [place] and he became unresponsive when he went there. Patient was given Narcan on the side, and he was given Narcan on the way to the hospital. Patient arrived to the ER with a pulse ox of 76%, he had a T-max of 101.5, and his chest x-ray as well as CT of the chest showed bilateral infiltrates. Patient tested negative for covid 19 infection, however the chest x-ray is clearly suspicious for possible aspiration pneumonia or COVID-19 pneumonia. Patient clearly admitted to me that he aspirated while he was vomiting, however during my evaluation the patient was feeling fine, and he was planning to sign out AGAINST MEDICAL ADVICE. I reviewed the chest x-ray, discussed the clinical situation with the patient, I felt it would be best to discharge the patient home on Augmentin at least for 10 days. I am strongly suspecting that were dealing with aspiration pneumonia. Reviewed the results of the CT angiogram of the chest, and the whole picture is most likely a picture of aspiration pneumonia. Again the patient wants to go home no matter what. Review of Systems Constitutional: Negative.. Abdomen: Patient denied nausea vomiting and diarrhea and abdominal pain. Cardiovascular: Patient denies any chest pain or short of breath no palpitations. Respiratory: Asymptomatic, negative. Neurologic: Negative Musculoskeletal: Negative Skin: Negative Psychiatric: Negative Endocrine: No heat or cold intolerance. No recent weight gain. Genitourinary: No dysuria or hematuria. Past Medical History Additional Past Medical History / Comment(s): chronic back pain, hepatitis C History of Any Multi-Drug Resistant Organisms: MRSA Date of last positivie culture/infection: 2020 MDRO Source:: skin Past Surgical History: No Surgical Hx Reported Past Anesthesia/Blood Transfusion Reactions: No Reported Reaction Past Psychological History: ADD/ADHD, Anxiety, Depression, PTSD Smoking Status: Current every day smoker Past Alcohol Use History: None Reported Past Drug Use History: Heroin - Past Family History Mother Family Medical History: No Reported History Father Family Medical History: Diabetes Mellitus Medications and Allergies Home Medications Medication Instructions Recorded Confirmed Type Amoxic-Pot Clav 875-125Mg 1 each PO Q12HR 7 Days #14 tab 02/24/21 Rx [Augmentin 875-125] Allergies Allergy/AdvReac Type Severity Reaction Status Date / Time No Known Allergies Allergy Verified 02/22/21 19:29 Physical Exam Vitals: Vital Signs Temp Pulse Pulse Pulse Resp BP BP 02/24/21 08:00 18 02/24/21 07:54 02/24/21 07:51 98.4 F 82 16 133/73 02/24/21 00:00 98.2 F 79 18 116/57 02/23/21 20:00 97.9 F 83 16 116/57 02/23/21 16:21 18 02/23/21 16:00 97.4 F L 76 16 133/63 02/23/21 15:58 88 18 122/74 Pulse Ox 02/24/21 08:00 02/24/21 07:54 96 02/24/21 07:51 96 02/24/21 00:00 100 02/23/21 20:00 97 02/23/21 16:21 02/23/21 16:00 98 02/23/21 15:58 99 Intake and Output 02/24/21 02/24/21 02/24/21 06:59 14:59 22:59 Intake Total 150 Balance 150 Intake: Oral 150 Other: # Voids 0 Patient is lying in the bed comfortably, no acute distress, awake alert and oriented. HEENT: Normocephalic. Atraumatic. Neck reveals no JVD, carotid bruits, or thyromegaly. CHEST EXAMINATION: Symmetrical expansion, clear breath sound bilaterally no rhonchi and no wheezes. CARDIAC: Normal S1, S2 with no gallops. No murmurs ABDOMEN: Soft. Bowel sounds normal. No organomegaly. No abdominal bruits. Extremities: reveal no edema. No clubbing or cyanosis Neurologically awake, alert, oriented x3 with well-coordinated movements. No focal deficits noted Skin: No rash or skin lesions. Psychiatric: Normal mood affect normal mental status examination, denies any suicidal ideation. Musculoskeletal: No joint swelling or deformity. Normal range of motion. Results - Laboratory Findings CBC and BMP: 02/24/21 09:36 02/24/21 09:36 ABG ABG pH 7.30 (7.35-7.45) L 02/22/21 17:28 ABG pCO2 59 mmHg (35-45) H 02/22/21 17:28 ABG pO2 54 mmHg (83-108) L* 02/22/21 17:28 ABG O2 Saturation 88.4 % (94-97) L 02/22/21 17:28 PT/INR, D-dimer D-Dimer 1.36 mg/L FEU (<0.60) H 02/22/21 17:21 Abnormal lab findings: Abnormal Labs 02/22/21 02/22/21 02/22/21 17:21 17:21 17:21 Plt Count Lymphocytes # 0.7 L D-Dimer 1.36 H ABG pH ABG pCO2 ABG pO2 ABG HCO3 ABG Total CO2 ABG O2 Saturation Chloride Glucose 111 H C-Reactive Protein Procalcitonin Urine Opiates Screen Ur Amphetamines Screen U Methamphetamines Scrn Urine Cocaine Screen 02/22/21 02/22/21 02/23/21 17:28 23:25 20:52 Plt Count Lymphocytes # D-Dimer ABG pH 7.30 L ABG pCO2 59 H ABG pO2 54 L* ABG HCO3 29 H ABG Total CO2 31 H ABG O2 Saturation 88.4 L Chloride Glucose C-Reactive Protein 7.8 H Procalcitonin Urine Opiates Screen Detected H Ur Amphetamines Screen Detected H U Methamphetamines Scrn Detected H Urine Cocaine Screen Detected H 02/23/21 02/24/21 02/24/21 20:52 09:36 09:36 Plt Count 120 L Lymphocytes # 0.8 L D-Dimer ABG pH ABG pCO2 ABG pO2 ABG HCO3 ABG Total CO2 ABG O2 Saturation Chloride 108 H Glucose 100 H C-Reactive Protein Procalcitonin 0.24 H Urine Opiates Screen Ur Amphetamines Screen U Methamphetamines Scrn Urine Cocaine Screen - Diagnostic Findings Chest x-ray: image reviewed CT scan - chest: image reviewed (As noted in HPI.) Assessment and Plan Assessment: Impression: Acute hypoxic respiratory failure secondary to aspiration pneumonia. History of heroin IV drug abuse. History of alcohol abuse. History of hepatitis C. History of ADHD. Recommendation: Considering the patient is insisting on signing out AGAINST MEDICAL ADVICE, I would suggest placing the patient on Augmentin 875 twice a day for 10 days, And the patient to follow up either with me on outpatient basis or with his primary care physician. If his condition gets worse, to come back to ER. Counseled regarding drug abuse. Time with Patient: Greater than 30
[2021-02-25] MEDS ORDERED: VANCOMYCIN TROUGH DUE 1 EACH MISC MISCELLANE ONE (07:00)
== END 2021-02-24 13:46 | disposition home or self-care (01) | DRG 917 ==
LOC: EC 16:55 → 3SCARD 19:54 → 1SOBS 02-23 15:42
PROVIDERS: ADMIT Internal Medicine; ATTEND Internal Medicine
DX: T40.1X1A Poisoning by heroin, accidental (unintentional), initial encounter (principal); G93.41 Metabolic encephalopathy; J69.0 Pneumonitis due to inhalation of food and vomit; J96.01 Acute respiratory failure with hypoxia; E87.2 Acidosis; Z20.822 Contact with and (suspected) exposure to COVID-19; G89.29 Other chronic pain; B19.20 Unspecified viral hepatitis C without hepatic coma; D72.810 Lymphocytopenia; F11.10 Opioid abuse, uncomplicated; F10.10 Alcohol abuse, uncomplicated; F19.10 Other psychoactive substance abuse, uncomplicated; F17.210 Nicotine dependence, cigarettes, uncomplicated; F32.9 Major depressive disorder, single episode, unspecified; F43.10 Post-traumatic stress disorder, unspecified; F90.9 Attention-deficit hyperactivity disorder, unspecified type; Z83.3 Family history of diabetes mellitus; Z86.14 Personal history of Methicillin resistant Staphylococcus aureus infection; M54.9 Dorsalgia, unspecified; Z71.51 Drug abuse counseling and surveillance of drug abuser; F41.9 Anxiety disorder, unspecified
CPT/HCPCS: 36415; 36600; 71045; 71275; 80048; 80053; 80306; 82728; 82805; 83605; 83615; 84145; 85025; 85379; 85652; 86140; 87040; 87635; 93005; 94760; 96361; 96374; 96375; 99285

== ENCOUNTER → 2023-04-15 | Outpatient (CLI) | payer OTHER ==
[2023-04-15 20:54] LABS: Hepatitis C IgG Antibody Reactive (Non-Reactive)
[2023-04-15 21:06] LABS: ALT 15 U/L (10-49); AST 22 U/L (14-35); Albumin 4.6 d/dL (3.8-4.9); Albumin/Globulin Ratio 1.39 Ratio (1.60-3.17); Alkaline Phosphatase 63 U/L (41-126); BUN/Creat Ratio 10.44 Ratio (12.00-20.00); Blood Urea Nitrogen 9.4 mg/dL (9.0-27.0); Calcium 10.1 mg/dL (8.7-10.3); Carbon Dioxide 21.8 mmol/L (21.6-31.8); Chloride 104 mmol/L (96-109); Globulin 3.3 d/dL (1.6-3.3); Glucose 136 mg/dL (70-110); Potassium 4.5 mmol/L (3.5-5.5); Sodium 142 mmol/L (135-145); Total Bilirubin 0.3 mg/dL (0.3-1.2); Total Protein 7.9 d/dL (6.2-8.2)
[2023-04-15 21:18] LABS: Hepatitis B Surface Antigen Nonreactive
[2023-04-15 23:39] LABS: Basophils # (A) 0.05 X 10*3/uL (0.00-0.10); Basophils % (A) 0.7 %; Eosinophils # (A) 0.03 X 10*3/uL (0.04-0.35); Eosinophils % (A) 0.4 %; HCT 44.6 % (39.6-50.0); HGB 14.1 d/dL (12.0-15.0); Lymphocytes # (A) 1.56 X 10*3/uL (0.90-5.00); MCH 31.3 pg (27.0-32.0); MCHC 31.6 d/dL (32.0-37.0); MCV 99.1 FL (80.0-97.0); Mean Platelet Volume 11.1 FL (9.5-12.2); Monocytes # (A) 0.26 X 10*3/uL (0.20-1.00); Monocytes % (A) 3.8 %; NRBC Per 100 WBC 0 X 10*3/uL (0.00-0.01); Neutrophils # (A) 4.86 X 10*3/uL (1.80-7.70); Neutrophils % (A) 71.8 %; Platelet Count 243 X 10*3/uL (140-440); RDW 13.2 % (11.5-14.5); WBC 6.78 X 10*3/uL (4.50-10.00)
== END | disposition home or self-care (01) ==
LOC: LABWHC1 13:06
PROVIDERS: ATTEND Family Medicine
DX: F11.20 Opioid dependence, uncomplicated (principal)
CPT/HCPCS: 36415; 80053; 85025; 86780; 86803; 87340